=== PATIENT | female | born 1995 | race Caucasian/White ===

== ENCOUNTER 2016-11-05 22:19 | Emergency (ER) | payer SELFPAY ==
[2016-11-05 22:26] VITALS: O2SAT 100
--- NOTE | 2016-11-05 22:31 | C.PDOC ---
History Of Present Illness Patient presents to the ER with a complaint of diffuse abdominal pain since yesterday. Patient reports her LMP was a few months ago but reports she is very irregular and it is not uncommon for her. Denies fever, chills, nausea, or vomiting. Time Seen by Provider: 11/05/16 22:30 Chief Complaint (Nursing): Abdominal Pain History Per: Patient History/Exam Limitations: no limitations Onset/Duration Of Symptoms: Days Current Symptoms Are (Timing): Still Present Severity: Moderate Pain Scale Rating Of: 4 Location Of Pain/Discomfort: Diffuse Radiation Of Pain To:: None Quality Of Discomfort: Unable To Describe Associated Symptoms: denies: Fever, Chills, Nausea, Vomiting Exacerbating Factors: None Alleviating Factors: None Recent travel outside of the [place]: No Abnormal Vaginal Bleeding: No Past Medical History Reviewed: Historical Data, Nursing Documentation, Vital Signs Vital Signs: Last Vital Signs Temp 98.4 F 11/05/16 22:22 Pulse 77 11/05/16 22:22 Resp 18 11/05/16 22:22 BP 142/86 11/05/16 22:22 Pulse Ox 100 11/05/16 23:50 - Medical History PMH: No Chronic Diseases Surgical History: No Surg Hx Family History: States: No Known Family Hx - Social History Hx Tobacco Use: No Hx Alcohol Use: No Hx Substance Use: No - Immunization History Hx Tetanus Toxoid Vaccination: No Hx Influenza Vaccination: No Hx Pneumococcal Vaccination: No Review Of Systems Constitutional: Negative for: Fever, Chills Gastrointestinal: Positive for: Abdominal Pain. Negative for: Nausea, Vomiting Physical Exam - Physical Exam Appears: Non-toxic Skin: Warm, Dry Oral Mucosa: Moist Chest: Symmetrical, No Tenderness Cardiovascular: Rhythm Regular, No Murmur Respiratory: No Rales, No Rhonchi, No Wheezing Gastrointestinal/Abdominal: Soft, Tenderness (Mid epigastric ), No Guarding, No Rebound Neurological/Psych: Oriented x3 ED Course And Treatment - Laboratory Results Result Diagrams: 11/05/16 23:10 11/05/16 23:10 O2 Sat by Pulse Oximetry: 100 (Room air) Pulse Ox Interpretation: Normal Progress Note: CT abd/pel ordered. Pepcid and IV fluids administered. Reevaluation Time: 02:55 Reassessment Condition: Improved Disposition Counseled Patient/Family Regarding: Studies Performed, Diagnosis, Need For Followup, Rx Given - Disposition Referrals: [facility] [Outside] [facility] [Outside] Disposition: HOME/ ROUTINE Disposition Time: 22:31 Condition: FAIR Prescriptions: Dicyclomine [Dicyclomine HCl] 10 mg PO QID #16 cap Polyethylene Glycol 3350 [Miralax] 17 gm PO DAILY #270 ml Instructions: Abdominal Pain (ED), Gas and Bloating (ED), Constipation (DC) Forms: [employer] (Yi), [employer] (Hungarian) - Clinical Impression Clinical Impression: Constipation, Abdominal pain - Scribe Statement The provider has reviewed the documentation as recorded by the Scribe Morris Dave All medical record entries made by the Lauraibmima were at my direction and personally dictated by me. I have reviewed the chart and agree that the record accurately reflects my personal performance of the history, physical exam, medical decision making, and the department course for this patient. I have also personally directed, reviewed, and agree with the discharge instructions and disposition.
[2016-11-05] MEDS ORDERED: Sodium Chloride 0.9% 1,000 ML IV ONE (22:44)
[2016-11-05 23:09] LABS: RBC URINE < 1 /hpf (0-3); URINE BACTERIA RARE (<OCC); URINE BILIRUBIN NEGATIVE (NEGATIVE); URINE BLOOD NEGATIVE (NEGATIVE); URINE COLOR Straw (YELLOW); URINE GLUCOSE (UA) NORMAL (Normal); URINE KETONE NEGATIVE (NEGATIVE); URINE LEUKOCYTE ESTERASE TRACE Leu/uL (Negative); URINE PROTEIN NEGATIVE (NEGATIVE); URINE UROBILINOGEN NORMAL mg/dL (0.2-1.0); WBC URINE 5 /hpf (0-5)
[2016-11-05 23:12] LABS: BASO % 0.5 % (0.0-2.0); EOS # 0.2 K/uL (0.0-0.7); EOS % 1.6 % (0.0-4.0); LYMPH # 3.3 K/uL (1.0-4.3); MEAN CELL VOLUME 82.1 fL (81.0-99.0); MEAN CORPUSCULAR HGB CONC 32.8 g/dL (33.0-37.0); MEAN PLATELET VOLUME 8.7 fL (7.2-11.7); MONO # 0.8 K/uL (0.0-0.8); MONO % 7.3 % (0.0-10.0); RED CELL DISTRIBUTION WIDTH 13.7 % (11.5-14.5); WHITE BLOOD COUNT 10.6 K/uL (4.8-10.8)
[2016-11-05 23:22] LABS: GFR AFRICAN-AMERICAN > 60
[2016-11-05 23:23] LABS: ALB/GLOB RATIO 1.1 (1.0-2.1); ALKALINE PHOSPHATASE 79 U/L (38-126); ALT/SGPT 38 U/L (9-52); AST/SGOT 26 U/L (14-36); BILIRUBIN,TOTAL 0.6 mg/dL (0.2-1.3); BLOOD UREA NITROGEN 7 mg/dL (7-17); CARBON DIOXIDE 28 mmol/L (22-30); GLUCOSE,RANDOM 91 mg/dL (65-105); TOTAL PROTEIN 7.6 g/dL (6.3-8.3)
[2016-11-05 23:27] LABS: CHLORIDE 98 mmol/L (98-107); POTASSIUM 3.6 mmol/L (3.6-5.2); SODIUM 140 mmol/L (132-148)
[2016-11-06] MEDS ORDERED: Iodixanol 320 MG/ML 100 ML BOTTLE IV ONE (00:49)
[2016-11-06 03:10] VITALS: BP 111/70; PULSE 58; RESP 16; TEMP 98.6
--- NOTE | 2016-11-06 09:05 | CT ---
PROCEDURE: CT Abdomen and Pelvis with intravenous contrast HISTORY: Abdominal pain and cramping. COMPARISON: None. TECHNIQUE: Multiple contiguous axial images were performed through the abdomen and pelvis with the use intravenous contrast. Subsequently, sagittal coronal reformatted images were obtained. Radiation dose: Total exam DLP = 1136 mGy-cm. This CT exam was performed using one or more of the following dose reduction techniques: Automated exposure control, adjustment of the mA and/or kV according to patient size, and/or use of iterative reconstruction technique. FINDINGS: LOWER THORAX: Unremarkable. LIVER: Unremarkable. No gross lesion or ductal dilatation. GALLBLADDER AND BILE DUCTS: Unremarkable. PANCREAS: Unremarkable. No gross lesion or ductal dilatation. SPLEEN: Unremarkable. ADRENALS: Unremarkable. No mass. KIDNEYS AND URETERS: Punctate nonobstructing right renal calculus. VASCULATURE: Unremarkable. No aortic aneurysm. BOWEL: Unremarkable. No obstruction. No gross mural thickening. APPENDIX: Unremarkable. Normal appendix. PERITONEUM: Unremarkable. No free fluid. No free air. LYMPH NODES: Unremarkable. No enlarged lymph nodes. BLADDER: Unremarkable. REPRODUCTIVE: Heterogeneous uterus, endometrium, and bilateral adnexa. BONES: No acute fracture. OTHER FINDINGS: None. IMPRESSION: Punctate nonobstructing 3 millimeter right renal calculus. These findings were preliminarily reported at 2:50 a.m. on 11/06/[address] Juan Martins from [employer].
== END 2016-11-06 03:13 | disposition home or self-care (01) ==
LOC: C.ER 22:19
DX: K59.00 Constipation, unspecified (principal); R10.9 Unspecified abdominal pain
CPT/HCPCS: 74177; 80053; 81001; 83690; 84703; 85025; 96361; 96374; 96375; 99284; J1885; J7040; Q9967

== ENCOUNTER 2017-03-10 16:13 | Emergency (ER) | payer SELFPAY ==
[2017-03-10 17:07] VITALS: O2SAT 100
--- NOTE | 2017-03-10 17:21 | C.PDOC ---
History Of Present Illness Kathryn eHnry is a 21 year old female presents complaining of left-sided suprapubic pain occurring on and off for 1 week. Also complains of lower back pain for the same period of time. Took Advil 3 hrs ago with minimal improvement. Denies any associated hematuria, dysuria, nausea, vomiting, diarrhea, vaginal d/c or fever. PMD: None provided Time Seen by Provider: 03/10/17 17:08 Chief Complaint (Nursing): Back Pain History Per: Patient History/Exam Limitations: language barrier (translated from israeli by family members) Onset/Duration Of Symptoms: Days (x 1 week) Current Symptoms Are (Timing): Still Present Past Medical History Reviewed: Historical Data, Nursing Documentation, Vital Signs Vital Signs: Last Vital Signs Temp 98.5 F 03/10/17 20:12 Pulse 76 03/10/17 20:12 Resp 18 03/10/17 20:12 BP 130/78 03/10/17 20:12 Pulse Ox 100 03/10/17 20:53 - Medical History PMH: No Chronic Diseases Surgical History: No Surg Hx Family History: States: No Known Family Hx - Social History Hx Tobacco Use: No Hx Alcohol Use: No Hx Substance Use: No - Immunization History Hx Tetanus Toxoid Vaccination: No Hx Influenza Vaccination: No Hx Pneumococcal Vaccination: No Review Of Systems Except As Marked, All Systems Reviewed And Found Negative. Constitutional: Negative for: Fever Gastrointestinal: Positive for: Abdominal Pain (suprapubic, left-sided). Negative for: Nausea, Vomiting, Diarrhea Genitourinary: Negative for: Dysuria, Hematuria Musculoskeletal: Positive for: Back Pain Physical Exam - Physical Exam Appears: Non-toxic, No Acute Distress Skin: Normal Color, Warm, Dry Head: Atraumatic, Normacephalic Eye(s): bilateral: Normal Inspection, PERRL, EOMI Nose: Normal Neck: Normal, Normal ROM Gastrointestinal/Abdominal: Soft, Tenderness (Left lower suprapubic tenderness) Back: Other (mid sacral tenderness to palpation) Extremity: Normal ROM, No Deformity Neurological/Psych: Oriented x3, Normal Speech, Normal Motor, Normal Sensation ED Course And Treatment - Laboratory Results Result Diagrams: 03/10/17 19:25 03/10/17 19:25 Lab Interpretation: Abnormal (leukocytosis) O2 Sat by Pulse Oximetry: 100 (RA) Pulse Ox Interpretation: Normal - CT Scan/US Pelvic US Other Rad Studies (CT/US): Read By Radiologist, Radiology Report Reviewed CT/US Interpretation: FINDINGS: Uterus/cervix: Uterus measures 7.1 x 4.1 x 5.6 CM. Endometrial stripe. measures 7 mm. No myometrial mass. Right ovary: Right ovary measures 2.9 x 1.3 x 2.8 CM. Normal blood flow. Left ovary: Left ovary measures 3.6 x 2.2 x 2.5 CM. Normal blood flow. Free fluid: No free fluid. Bladder: Unremarkable as visualized. Wall is normal thickness for degree of. distention. . IMPRESSION: Normal pelvic ultrasound. Reassessment Condition: Improved (on re-evaluation pt states abdominal pain completely resolved) Medical Decision Making Medical Decision Making: Time: 17:20 Initial Impression: 21 year old female with suprapubic pain Initial Plan: * Tylenol 975 mg * Urinalysis * HCG Qualitative Urine positive for bacteria and WBC, and protein. Urine culture was sent. Pending Pelvic/Transvaginal Ultrasound. at 19:02 pt c/o sob, blood tests including d dimer ordered. Disposition Counseled Patient/Family Regarding: Studies Performed, Diagnosis, Need For Followup, Rx Given - Disposition Referrals: [facility] [Outside] [facility] [Outside] Disposition: HOME/ ROUTINE Disposition Time: 20:34 Condition: GOOD Additional Instructions: FOLLOW UP WITH PMD/CLINIC ON SUNDAY FOR RE-EVALUATION. DRINK PLENTY OF WATER AND CRANBERRY JUICE. IF ABDOMINAL PAIN, VOMITING, FEVER OR ANY NEW CONCERNING SYMPTOMS DEVELOP RETURN TO ED. Prescriptions: Ciprofloxacin [Cipro] 1 tab PO BID #9 tab Instructions: Urinary Tract Infection in Women (ED), Leukocytosis (ED) Forms: [employer] (Lithuanian) - Clinical Impression Clinical Impression: Urinary tract infection, Leukocytosis - PA / PRODUCT SAFETY ASSOCIATE / Resident Statement MD/DO has reviewed & agrees with the documentation as recorded. - Scribe Statement The provider has reviewed the documentation as recorded by the Lauraibmima Shah All medical record entries made by the Lauraibmima were at my direction and personally dictated by me. I have reviewed the chart and agree that the record accurately reflects my personal performance of the history, physical exam, medical decision making, and the department course for this patient. I have also personally directed, reviewed, and agree with the discharge instructions and disposition.
[2017-03-10 17:55] LABS: RBC URINE 2 /hpf (0-3); URINE BACTERIA RARE (<OCC); URINE BILIRUBIN NEGATIVE (NEGATIVE); URINE BLOOD NEGATIVE (NEGATIVE); URINE COLOR Yellow (YELLOW); URINE GLUCOSE (UA) NORMAL (Normal); URINE KETONE NEGATIVE (NEGATIVE); URINE LEUKOCYTE ESTERASE NEG Leu/uL (Negative); URINE PROTEIN 1+ mg/dL (NEGATIVE); URINE UROBILINOGEN NORMAL mg/dL (0.2-1.0); WBC URINE 15 /hpf (0-5)
[2017-03-10 19:28] LABS: BASO # 0.1 K/uL (0.0-0.2); BASO % 0.8 % (0.0-2.0); EOS # 0.1 K/uL (0.0-0.7); EOS % 0.6 % (0.0-4.0); LYMPH # 2.9 K/uL (1.0-4.3); LYMPH % 22.3 % (20.0-40.0); MEAN CELL VOLUME 81.9 fL (81.0-99.0); MEAN CORPUSCULAR HEMOGLOBIN 26.5 pg (27.0-31.0); MEAN CORPUSCULAR HGB CONC 32.4 g/dL (33.0-37.0); MEAN PLATELET VOLUME 9.1 fL (7.2-11.7); MONO # 0.5 K/uL (0.0-0.8); MONO % 4.1 % (0.0-10.0); RED CELL DISTRIBUTION WIDTH 13.5 % (11.5-14.5); WHITE BLOOD COUNT 13.1 K/uL (4.8-10.8)
[2017-03-10 19:41] LABS: ALB/GLOB RATIO 1.2 (1.0-2.1); ALKALINE PHOSPHATASE 69 U/L (38-126); ALT/SGPT 46 U/L (9-52); AST/SGOT 26 U/L (14-36); BILIRUBIN,TOTAL 0.5 mg/dL (0.2-1.3); BLOOD UREA NITROGEN 6 mg/dL (7-17); CALCIUM 8.5 mg/dl (8.6-10.4); CARBON DIOXIDE 28 mmol/L (22-30); CHLORIDE 102 mmol/L (98-107); GFR AFRICAN-AMERICAN > 60; GLUCOSE,RANDOM 92 mg/dL (65-105); POTASSIUM 3.6 mmol/L (3.6-5.2); SODIUM 139 mmol/L (132-148); TOTAL PROTEIN 7.3 g/dL (6.3-8.3)
[2017-03-10 20:13] VITALS: BP 130/78; PULSE 76; RESP 18; TEMP 98.5
--- NOTE | 2017-03-10 20:17 | US ---
EXAM: US Pelvis Complete, Transabdominal US Pelvis, Transvaginal CLINICAL HISTORY: 21 years old, female; Pain; Other: Pelvic pain; Gestational age or lmp: 02/21/2017; Additional info: Pain R/O ovarian cyst TECHNIQUE: Real-time transabdominal and transvaginal pelvic ultrasound (complete) with image documentation. Transvaginal imaging was used for better evaluation of the endometrium and adnexa. COMPARISON: No relevant prior studies available. FINDINGS: Uterus/cervix: Uterus measures 7.1 x 4.1 x 5.6 CM. Endometrial stripe measures 7 mm. No myometrial mass. Right ovary: Right ovary measures 2.9 x 1.3 x 2.8 CM. Normal blood flow. Left ovary: Left ovary measures 3.6 x 2.2 x 2.5 CM. Normal blood flow. Free fluid: No free fluid. Bladder: Unremarkable as visualized. Wall is normal thickness for degree of distention. IMPRESSION: Normal pelvic ultrasound.
== END 2017-03-10 20:36 | disposition home or self-care (01) ==
LOC: C.ER 16:13
DX: N39.0 Urinary tract infection, site not specified (principal); D72.829 Elevated white blood cell count, unspecified

== ENCOUNTER 2017-06-08 17:10 | Emergency (ER) | payer OTHER ==
[2017-06-08 17:31] VITALS: BMI 30.1
[2017-06-08] MEDS ORDERED: Sodium Chloride 0.9% 1,000 ML IV STA (18:14)
--- NOTE | 2017-06-08 18:30 | C.PDOC ---
History Of Present Illness <Risa Sue - Last Filed: 06/08/17 18:58> <Brynn Robles - Last Filed: 06/08/17 21:42> 22 y/o female presents to ED with complaints of abdominal pain for 3 days secondary to menses worse yesterday. Patient reports taking x2 600mg ibuprofen yesterday for pain and x12 600mg ibuprofen today. Patient admits to nausea and vomiting, denies fever, chills, back pain, dysuria or any other complaints at this time. (Risa Sue) History Per: Patient History/Exam Limitations: no limitations Onset/Duration Of Symptoms: Days Current Symptoms Are (Timing): Still Present Location Of Pain/Discomfort: Epigastric <Risa Sue - Last Filed: 06/08/17 18:58> <Brynn Robles - Last Filed: 06/08/17 21:42> Time Seen by Provider: 06/08/17 17:37 Chief Complaint (Nursing): Abdominal Pain Past Medical History Reviewed: Historical Data, Nursing Documentation, Vital Signs - Medical History PMH: No Chronic Diseases Surgical History: No Surg Hx Family History: States: No Known Family Hx - Social History Hx Tobacco Use: No Hx Alcohol Use: No Hx Substance Use: No - Immunization History Hx Tetanus Toxoid Vaccination: No Hx Influenza Vaccination: No Hx Pneumococcal Vaccination: No <Risa Sue - Last Filed: 06/08/17 18:58> Vital Signs: Last Vital Signs Temp 98.1 F 06/08/17 17:31 Pulse 72 06/08/17 20:45 Resp 18 06/08/17 20:45 BP 126/83 06/08/17 20:45 Pulse Ox 99 06/08/17 20:45 Review Of Systems Constitutional: Negative for: Fever, Chills Gastrointestinal: Positive for: Nausea, Vomiting, Abdominal Pain. Negative for : Diarrhea Genitourinary: Negative for: Dysuria Musculoskeletal: Negative for: Back Pain Skin: Negative for: Rash <Risa Sue - Last Filed: 06/08/17 18:58> Physical Exam - Physical Exam Appears: Non-toxic, No Acute Distress Skin: Warm, Dry, No Rash Head: Atraumatic, Normacephalic Eye(s): bilateral: Normal Inspection Oral Mucosa: Moist Neck: Normal ROM, Supple Chest: Symmetrical Cardiovascular: Rhythm Regular Respiratory: Normal Breath Sounds, No Rales, No Rhonchi, No Wheezing Gastrointestinal/Abdominal: Soft, Tenderness (Epigastric and mild suprapubic), No Guarding, No Rebound Back: No CVA Tenderness Extremity: Normal ROM, Capillary Refill (<2 seconds) Neurological/Psych: Oriented x3, Normal Speech <Risa Sue - Last Filed: 06/08/17 18:58> ED Course And Treatment O2 Sat by Pulse Oximetry: 100 (RA) Pulse Ox Interpretation: Normal Progress Note: Blood work, UA ordered. Zofran, Protonix and Morphine administered. Patient is pending US and labs, will be turned over to Dr. Robles @1900 <Risa Sue - Last Filed: 06/08/17 18:58> - Laboratory Results Result Diagrams: 06/08/17 19:02 06/08/17 19:02 <Brynn Robles - Last Filed: 06/08/17 21:42> Disposition - Disposition Disposition Time: 18:59 <Risa Sue - Last Filed: 06/08/17 18:58> <Brynn Robles - Last Filed: 06/08/17 21:42> - Disposition Condition: FAIR Forms: [employer] (Singaporean) - Clinical Impression Clinical Impression: Abdominal pain - PA / [employer] UPPERS OR LININGS / Resident Statement MD/DO has reviewed & agrees with the documentation as recorded. - Scribe Statement The provider has reviewed the documentation as recorded by the Scribe <Risa Sue - Last Filed: 06/08/17 18:58> <Brynn Robles - Last Filed: 06/08/17 21:42> - Scribe Statement Meghan Griggs All medical record entries made by the Scribe were at my direction and personally dictated by me. I have reviewed the chart and agree that the record accurately reflects my personal performance of the history, physical exam, medical decision making, and the department course for this patient. I have also personally directed, reviewed, and agree with the discharge instructions and disposition. (Risa Sue) Physician Patient Turnover Patient Signed Over To: Brynn Robles Handoff Comments: Pending US and Labs <Risa Sue - Last Filed: 06/08/17 18:58> Addendum <Risa Sue - Last Filed: 06/08/17 18:58> <Brynn Robles - Last Filed: 06/08/17 21:42> Addendum: 06/08/17 21:40 Patient resting comfortably, in no distress/pain. She states she has no current abdominal pain. Blood work WNL, transvaginal US unremarkable. She was instructed to never take more than Motrin 600mg Q6 WITH FOOD. Rx for pepcid given. Patient instructed to follow up with PMD/clinic in 1-2 days, and she understands she should return to ED if her symptoms worsen. (Brynn Robles)
[2017-06-08 18:47] LABS: HCG,QUALITATIVE URINE NEGATIVE (NEGATIVE)
[2017-06-08 18:50] LABS: SQUAMOUS EPITHIAL < 1 /hpf (0-5); URINE BACTERIA RARE (<OCC); URINE BILIRUBIN NEGATIVE (NEGATIVE); URINE BLOOD 3+ (NEGATIVE); URINE CLARITY Clear (Clear); URINE COLOR Colorless (YELLOW); URINE GLUCOSE (UA) NORMAL (Normal); URINE LEUKOCYTE ESTERASE NEG Leu/uL (Negative); URINE PROTEIN NEGATIVE (NEGATIVE); URINE UROBILINOGEN NORMAL mg/dL (0.2-1.0)
[2017-06-08] MEDS ORDERED: Sodium Chloride 0.9% 1,000 ML ONE (18:56)
[2017-06-08 19:05] LABS: BASO # 0.1 K/uL (0.0-0.2); BASO % 0.6 % (0.0-2.0); EOS # 0.1 K/uL (0.0-0.7); EOS % 0.4 % (0.0-4.0); HEMOGLOBIN 14.8 g/dL (11.0-16.0); LYMPH # 2.7 K/uL (1.0-4.3); LYMPH % 21.5 % (20.0-40.0); MEAN CELL VOLUME 80.2 fL (81.0-99.0); MEAN CORPUSCULAR HEMOGLOBIN 26.5 pg (27.0-31.0); MEAN CORPUSCULAR HGB CONC 33.1 g/dL (33.0-37.0); MEAN PLATELET VOLUME 9.3 fL (7.2-11.7); MONO # 0.5 K/uL (0.0-0.8); MONO % 4.1 % (0.0-10.0); NEUT # 9.4 K/uL (1.8-7.0); NEUT % 73.4 % (50.0-75.0); NRBC % 0.2 % (0.0-2.0); RBC 5.57 Mil/uL (3.80-5.20); RED CELL DISTRIBUTION WIDTH 13.5 % (11.5-14.5); WHITE BLOOD COUNT 12.7 K/uL (4.8-10.8)
[2017-06-08 19:17] LABS: ALBUMIN 4.2 g/dL (3.5-5.0); ALT/SGPT 20 U/L (9-52); AST/SGOT 20 U/L (14-36); BLOOD UREA NITROGEN 6 mg/dL (7-17); CALCIUM 9.8 mg/dl (8.6-10.4); GFR AFRICAN-AMERICAN > 60; GFR NON-AFRICAN AMERICAN > 60; LIPASE 222 U/L (23-300)
--- NOTE | 2017-06-08 21:00 | US ---
EXAM: US Pelvis Complete, Transabdominal CLINICAL HISTORY: 22 years old, female; Pain; Pelvic pain; Additional info: Epigastric abd pain TECHNIQUE: Real-time transabdominal pelvic ultrasound (complete) with image documentation. COMPARISON: No relevant prior studies available. FINDINGS: Uterus/cervix: Uterus measures 7.3 x 3.6 x 5.0 cm in size. No myometrial mass. Endometrium: 0.7 cm in thickness. Right ovary: 4.2 x 2.0 x 3.0 cm in size. No mass. Normal flow. Left ovary: 3.7 x 1.6 x 3.7 cm in size. No mass. Normal flow. Free fluid: No significant free fluid. Bladder: Unremarkable as visualized. IMPRESSION: 1.No acute findings. EXAM: US Pelvis, Transvaginal CLINICAL HISTORY: 22 years old, female; Pain; Pelvic pain; Additional info: Epigastric abd pain TECHNIQUE: Real-time transvaginal pelvic ultrasound (complete) with image documentation. Transvaginal imaging was used for better evaluation of the endometrium and adnexa. COMPARISON: No relevant prior studies available. FINDINGS: Uterus/cervix: Uterus measures 7.3 x 3.6 x 5.0 cm in size. No myometrial mass. Endometrium: 0.7 cm in thickness. Right ovary: 4.2 x 2.0 x 3.0 cm in size. No mass. Normal flow. Left ovary: 3.7 x 1.6 x 3.7 cm in size. No mass. Normal flow. Free fluid: No significant free fluid. Bladder: Empty bladder which cannot be evaluated with this probe. IMPRESSION: 1.No acute findings.
[2017-06-08 21:59] VITALS: BP 133/83; PULSE 76; RESP 20; TEMP 99; O2SAT 100
== END 2017-06-08 21:59 | disposition home or self-care (01) ==
LOC: C.ER 17:10
DX: R10.9 Unspecified abdominal pain (principal)
CPT/HCPCS: 76830; 76856; 80053; 81001; 83690; 84703; 85025; 96361; 96374; 96375; 99285; C9113; J2270; J2405; J7040

== ENCOUNTER 2017-06-18 10:50 | Emergency (ER) | payer OTHER ==
[2017-06-18 10:51] VITALS: BMI 30.1
[2017-06-18 10:58] VITALS: RESP 18
[2017-06-18 11:08] VITALS: TEMP 98.2
[2017-06-18 12:19] LABS: HCG,QUALITATIVE URINE NEGATIVE (NEGATIVE)
[2017-06-18 12:25] LABS: SQUAMOUS EPITHIAL 14 /hpf (0-5); URINE BACTERIA FEW (<OCC); URINE BILIRUBIN NEGATIVE (NEGATIVE); URINE BLOOD 3+ (NEGATIVE); URINE CLARITY Hazy (Clear); URINE COLOR Red (YELLOW); URINE GLUCOSE (UA) NORMAL (Normal); URINE LEUKOCYTE ESTERASE 1+ Leu/uL (Negative); URINE PROTEIN 2+ mg/dL (NEGATIVE); URINE UROBILINOGEN NORMAL mg/dL (0.2-1.0)
--- NOTE | 2017-06-18 12:32 | C.PDOC ---
History Of Present Illness 22-year-old female presents to the emergency department with complaints of abdominal pain for the past ten days. Patient was seen in ED last week for same complaint and reports no improvement. She has not followed with OBGYN for her symptoms. She is taking x2 600mg ibuprofen at home for pain with minimal relief. Patient admits to nausea and and non-bloody/non-bilious vomiting, denies fever, chills, back pain, dysuria or any other complaints at this time. Time Seen by Provider: 06/18/17 12:02 Chief Complaint (Nursing): Female Genitourinary History Per: Patient History/Exam Limitations: no limitations Past Medical History Reviewed: Historical Data, Nursing Documentation, Vital Signs Vital Signs: Last Vital Signs Temp 98.2 F 06/18/17 10:55 Pulse 81 06/18/17 10:55 Resp 18 06/18/17 10:55 BP 138/95 H 06/18/17 10:55 Pulse Ox 99 06/18/17 13:27 Family History: States: No Known Family Hx - Social History Hx Tobacco Use: No Hx Alcohol Use: No Hx Substance Use: No - Immunization History Hx Tetanus Toxoid Vaccination: No Hx Influenza Vaccination: No Hx Pneumococcal Vaccination: No Review Of Systems Constitutional: Negative for: Fever Respiratory: Negative for: Shortness of Breath Gastrointestinal: Positive for: Nausea, Vomiting, Abdominal Pain Genitourinary: Positive for: Vaginal Bleeding, Pelvic Pain. Negative for: Dysuria, Vaginal Discharge Neurological: Negative for: Weakness, Numbness, Headache, Dizziness Physical Exam - Physical Exam Appears: Well, Non-toxic, No Acute Distress Skin: Normal Color, Warm, Dry, No Rash Head: Normacephalic Eye(s): bilateral: PERRL Nose: Normal Oral Mucosa: Moist Lips: Normal Appearing Neck: Normal ROM Chest: Symmetrical Cardiovascular: Rhythm Regular, No Murmur Respiratory: Normal Breath Sounds, No Accessory Muscle Use Gastrointestinal/Abdominal: Soft, Tenderness (Suprapubic), No Guarding, No Rebound Extremity: Normal ROM, No Deformity, No Swelling Neurological/Psych: Oriented x3, Normal Speech ED Course And Treatment - Laboratory Results Result Diagrams: 06/18/17 13:05 06/18/17 13:05 Urine POC: Negative O2 Sat by Pulse Oximetry: 99 (RA) Pulse Ox Interpretation: Normal Progress - Data Reviewed Data Reviewed: Lab, Old records Disposition Counseled Patient/Family Regarding: Studies Performed, Diagnosis, Need For Followup, Rx Given - Disposition Referrals: [facility] [Outside] [facility] [Outside] Disposition: HOME/ ROUTINE Disposition Time: 13:26 Condition: GOOD Prescriptions: Naproxen [Naprosyn] 1 tab PO BID PRN #25 tab PRN Reason: Pain Nitrofurantoin Macrocrystals [Macrobid] 1 cap PO BID #14 cap Phenazopyridine HCl [Pyridium] 200 mg PO BID #6 tablet Instructions: Urinary Tract Infections in Adults, Menstrual Cramps Forms: [employer] (Pashto) Print Language: DANISH - Clinical Impression Clinical Impression: Urinary tract infection, Pelvic pain - Scribe Statement The provider has reviewed the documentation as recorded by the Scribe (Karen Calderón) All medical record entries made by the Scribe were at my direction and personally dictated by me. I have reviewed the chart and agree that the record accurately reflects my personal performance of the history, physical exam, medical decision making, and the department course for this patient. I have also personally directed, reviewed, and agree with the discharge instructions and disposition.
[2017-06-18 13:09] LABS: BASO # 0.1 K/uL (0.0-0.2); BASO % 0.9 % (0.0-2.0); EOS % 0.3 % (0.0-4.0); LYMPH # 2.3 K/uL (1.0-4.3); LYMPH % 22.3 % (20.0-40.0); MEAN CELL VOLUME 80.6 fL (81.0-99.0); MEAN CORPUSCULAR HEMOGLOBIN 26.5 pg (27.0-31.0); MEAN CORPUSCULAR HGB CONC 32.8 g/dL (33.0-37.0); MEAN PLATELET VOLUME 8.5 fL (7.2-11.7); MONO # 0.4 K/uL (0.0-0.8); MONO % 3.8 % (0.0-10.0); NEUT # 7.6 K/uL (1.8-7.0); NEUT % 72.7 % (50.0-75.0); NRBC % 0.1 % (0.0-2.0); RBC 4.72 Mil/uL (3.80-5.20); RED CELL DISTRIBUTION WIDTH 13.7 % (11.5-14.5); WHITE BLOOD COUNT 10.4 K/uL (4.8-10.8)
[2017-06-18 13:12] LABS: HEMOGLOBIN 12.5 g/dL (11.0-16.0)
[2017-06-18 13:23] LABS: BLOOD UREA NITROGEN 8 mg/dL (7-17); CALCIUM 9.2 mg/dl (8.6-10.4); GFR AFRICAN-AMERICAN > 60; GFR NON-AFRICAN AMERICAN > 60
[2017-06-18 13:40] VITALS: BP 136/77; PULSE 77
[2017-06-18 13:41] VITALS: O2SAT 99
== END 2017-06-18 13:47 | disposition home or self-care (01) ==
LOC: C.ER 10:50
DX: N39.0 Urinary tract infection, site not specified (principal)
CPT/HCPCS: 80048; 81001; 84703; 85025; 96374; 99285; J1885

== ENCOUNTER 2017-12-04 18:26 | Emergency (ER) | payer OTHER ==
[2017-12-04 18:26] VITALS: BMI 30.1
[2017-12-04 18:33] VITALS: O2SAT 98
[2017-12-04 18:58] LABS: HCG,QUALITATIVE URINE NEGATIVE (NEGATIVE); SQUAMOUS EPITHIAL 3 /hpf (0-5); URINE BACTERIA FEW (<OCC); URINE BILIRUBIN NEGATIVE (NEGATIVE); URINE BLOOD 1+ (NEGATIVE); URINE CLARITY Clear (Clear); URINE COLOR Yellow (YELLOW); URINE GLUCOSE (UA) NORMAL (Normal); URINE PROTEIN NEGATIVE (NEGATIVE); URINE UROBILINOGEN NORMAL mg/dL (0.2-1.0)
[2017-12-04 19:01] LABS: URINE LEUKOCYTE ESTERASE 1+ Leu/uL (Negative)
[2017-12-04] MEDS ORDERED: Sodium Chloride 0.9% 1,000 ML IV ONE (19:09)
--- NOTE | 2017-12-04 19:19 | C.PDOC ---
History Of Present Illness 22 y/o female presents to the ED complaining of lower abdominal pain for 3 days. Pain is described as on and off. LMP was mid-October. Also complaining of light vaginal spotting. No discharge. Otherwise she denies any hematuria, diarrhea, dysuria, or fevers. Time Seen by Provider: 12/04/17 19:02 Chief Complaint (Nursing): Female Genitourinary History Per: Patient History/Exam Limitations: no limitations Onset/Duration Of Symptoms: Days (x3) Current Symptoms Are (Timing): Still Present Abnormal Vaginal Bleeding: Yes Last Menstral Period: middle of October Past Medical History Reviewed: Historical Data, Nursing Documentation, Vital Signs Vital Signs: Last Vital Signs Temp 98.7 F 12/04/17 18:31 Pulse 83 12/04/17 18:31 Resp 20 12/04/17 18:31 BP 136/80 12/04/17 18:31 Pulse Ox 98 12/04/17 21:29 Surgical History: No Surg Hx Family History: States: No Known Family Hx - Social History Hx Tobacco Use: No Hx Alcohol Use: No Hx Substance Use: No - Immunization History Hx Tetanus Toxoid Vaccination: No Hx Influenza Vaccination: No Hx Pneumococcal Vaccination: No Review Of Systems Except As Marked, All Systems Reviewed And Found Negative. Constitutional: Negative for: Fever, Chills Gastrointestinal: Positive for: Abdominal Pain. Negative for: Vomiting, Diarrhea Genitourinary: Positive for: Vaginal Bleeding. Negative for: Dysuria, Frequency , Hematuria, Vaginal Discharge Physical Exam - Physical Exam Appears: Non-toxic, No Acute Distress Skin: Normal Color, Warm, Dry Head: Atraumatic, Normacephalic Eye(s): bilateral: Normal Inspection, PERRL, EOMI Oral Mucosa: Moist Neck: Normal ROM, Supple Chest: Symmetrical Cardiovascular: Rhythm Regular, No Murmur Respiratory: Normal Breath Sounds, No Rales, No Rhonchi, No Wheezing Gastrointestinal/Abdominal: Soft, Tenderness (Mild lower abdominal tenderness bilaterally), No Guarding, No Rebound Back: Normal Inspection, No CVA Tenderness Extremity: Bilateral: Atraumatic, Normal Color And Temperature, Normal ROM Neurological/Psych: Oriented x3, Normal Speech ED Course And Treatment - Laboratory Results Result Diagrams: 12/04/17 19:24 12/04/17 19:24 Urine POC: Negative O2 Sat by Pulse Oximetry: 98 (RA) Pulse Ox Interpretation: Normal - CT Scan/US Pelvic US Other Rad Studies (CT/US): Read By Radiologist, Radiology Report Reviewed CT/US Interpretation: Name: EKATERINA BOWLES Age: 22Years F Date: 12/04/2017. Requesting Physician: Júnior Sherwin : 1995. [employer] Procedure Ordered As Accession Number of Images. US PELVIS COMP NON-OB PELVIS/ TRANSVAG US [id number] 86. Provided Clinical History: lower abd pain/ tenderness. CONFIDENTIALITY STATEMENT. This report is intended only for the use of the referring physician, and only in accordance with law, If you received this in error, call [phone]. Page 1 of 1. EXAM: US Pelvis Complete, Transabdominal. US Pelvis, Transvaginal. CLINICAL HISTORY: 22 years old, female; Pain; Pelvic pain; Additional info: Lower abd pain/. tenderness. TECHNIQUE: Real-time transabdominal and transvaginal pelvic ultrasound (complete ) with image. documentation. Transvaginal imaging was used for better evaluation of the endometrium and. adnexa. COMPARISON: PELVIS/TRANSVAG US 2017 8:06 PM. FINDINGS: Uterus/cervix: Unremarkable. No myometrial mass. Endometrial stripe measures 7 mm in thickness. Trace free fluid in the cervix which is a benign finding. Right ovary: Unremarkable. No mass. Normal blood flow. Left ovary: Unremarkable. No mass. Normal blood flow. Free fluid: No free fluid. IMPRESSION: Normal pelvic ultrasound. Thank you for allowing us to participate in the care of your patient. Dictated and Authenticated by: Demarcus Quezada MD. 12/04/2017 9:26 PM [facility] [place] ([place] [facility] [place]) Medical Decision Making Medical Decision Making: Initial Plan: --Beta HCG quant --CMP --Lipase --CBC --Urinalysis --Urine preg --Urine culture --IV fluids --Toradol 30 mg IVP --Pelvic US Labs reviewed, and discussed with patient. Urine HCG negative. Ultrasound is normal. Copy of report provided. Disposition Counseled Patient/Family Regarding: Diagnosis - Disposition Referrals: [facility] [Outside] Disposition: HOME/ ROUTINE Disposition Time: 21:33 Condition: STABLE Prescriptions: Ciprofloxacin [Cipro] 1 tab PO BID #14 tab Ibuprofen [Motrin] 1 tab PO TID PRN #30 tab PRN Reason: Pain Instructions: Urinary Tract Infections in Adults Forms: [facility] (Occitan), Gen Discharge Inst English Print Language: KENYAN - POA Present On Arrival: None - Clinical Impression Clinical Impression: Urinary tract infection - Scribe Statement The provider has reviewed the documentation as recorded by the Francisco Shah Provider Attestation: All medical record entries made by the Francisco were at my direction and personally dictated by me. I have reviewed the chart and agree that the record accurately reflects my personal performance of the history, physical exam, medical decision making, and the department course for this patient. I have also personally directed, reviewed, and agree with the discharge instructions and disposition.
[2017-12-04 19:27] LABS: BASO # 0.1 K/uL (0.0-0.2); BASO % 0.6 % (0.0-2.0); EOS # 0.4 K/uL (0.0-0.7); EOS % 3.4 % (0.0-4.0); LYMPH # 3.8 K/uL (1.0-4.3); LYMPH % 34.6 % (20.0-40.0); MEAN CORPUSCULAR HEMOGLOBIN 27.1 pg (27.0-31.0); MEAN CORPUSCULAR HGB CONC 33.9 g/dL (33.0-37.0); MEAN PLATELET VOLUME 8.6 fL (7.2-11.7); MONO # 0.6 K/uL (0.0-0.8); MONO % 5.7 % (0.0-10.0); NEUT # 6.2 K/uL (1.8-7.0); NEUT % 55.7 % (50.0-75.0); NRBC % 0.1 % (0.0-2.0); RBC 4.79 Mil/uL (3.80-5.20); RED CELL DISTRIBUTION WIDTH 13.7 % (11.5-14.5); WHITE BLOOD COUNT 11.1 K/uL (4.8-10.8)
[2017-12-04 19:44] LABS: ALB/GLOB RATIO 1.2 (1.0-2.1); ALT/SGPT 31 U/L (9-52); AST/SGOT 22 U/L (14-36); BLOOD UREA NITROGEN 8 mg/dL (7-17); CALCIUM 8.7 mg/dl (8.6-10.4); GFR NON-AFRICAN AMERICAN > 60; LIPASE 277 U/L (23-300)
[2017-12-04 22:12] VITALS: BP 112/68; PULSE 72; RESP 18; TEMP 97.2
--- NOTE | 2017-12-05 10:10 | US ---
Date of service: 12/04/2017 HISTORY: lower abd pain/ tenderness COMPARISON: None available. TECHNIQUE: Transabdominal and transvaginal pelvic ultrasound was performed. FINDINGS: UTERUS: Measures 6.3 x 3.6 x 4.2 cm. Anteverted, normal in size and appearance. No fibroid or other mass lesion seen. ENDOMETRIUM: Measures 7 mm in diameter. Normal in appearance. CERVIX: Small amount of fluid in the endocervical canal. RIGHT OVARY: Measures 5.6 x 2.2 x 2.8 cm. No solid mass. Normal flow. LEFT OVARY: Measures 4.8 x 1.8 x 2.9 cm. No solid mass. Normal flow. FREE FLUID: No significant free fluid noted. OTHER FINDINGS: None. IMPRESSION: Unremarkable pelvic ultrasound. A preliminary report was provided by [employer].
== END 2017-12-04 22:12 | disposition home or self-care (01) ==
LOC: C.ER 18:26
DX: N39.0 Urinary tract infection, site not specified (principal)
CPT/HCPCS: 76830; 76856; 80053; 81001; 83690; 84702; 84703; 85025; 96361; 96374; 99285; J1885; J7030

== ENCOUNTER 2018-07-02 21:45 | Emergency (ER) | payer OTHER ==
[2018-07-02 21:45] VITALS: BMI 30.1
[2018-07-02 22:33] VITALS: RESP 16; O2SAT 98
[2018-07-02] MEDS ORDERED: Sodium Chloride 0.9% 1,000 ML IV ONE (22:51)
[2018-07-02] MEDS ORDERED: Sodium Chloride 0.9% 1,000 ML ONE (23:22)
[2018-07-02 23:23] LABS: BASO # 0.1 K/uL (0.0-0.2); EOS # 0.3 K/uL (0.0-0.7); EOS % 2.2 % (0.0-4.0); HEMOGLOBIN 12.7 g/dL (11.0-16.0); LYMPH # 4.4 K/uL (1.0-4.3); LYMPH % 35.1 % (20.0-40.0); MEAN CELL VOLUME 84.7 fL (81.0-99.0); MEAN PLATELET VOLUME 9.1 fL (7.2-11.7); MONO # 0.8 K/uL (0.0-0.8); MONO % 6.4 % (0.0-10.0); NEUT # 6.9 K/uL (1.8-7.0); NEUT % 55.3 % (50.0-75.0); NRBC % 0.2 % (0.0-2.0); RBC 4.56 Mil/uL (3.80-5.20); RED CELL DISTRIBUTION WIDTH 13.4 % (11.5-14.5); WHITE BLOOD COUNT 12.4 K/uL (4.8-10.8)
[2018-07-02 23:32] LABS: SQUAMOUS EPITHIAL 51 /hpf (0-5); URINE BILIRUBIN NEGATIVE (NEGATIVE); URINE BLOOD 1+ (NEGATIVE); URINE CLARITY Hazy (Clear); URINE COLOR Yellow (YELLOW); URINE GLUCOSE (UA) NORMAL (Normal); URINE LEUKOCYTE ESTERASE TRACE Leu/uL (Negative); URINE PROTEIN NEGATIVE (NEGATIVE); URINE UROBILINOGEN NORMAL mg/dL (0.2-1.0)
[2018-07-02 23:35] LABS: ALB/GLOB RATIO 1.2 (1.0-2.1); ALBUMIN 3.9 g/dL (3.5-5.0); ALT/SGPT 10 U/L (9-52); AST/SGOT 21 U/L (14-36); BLOOD UREA NITROGEN 10 mg/dL (7-17); CALCIUM 9.1 mg/dl (8.6-10.4); GFR NON-AFRICAN AMERICAN > 60; LIPASE 126 U/L (23-300)
[2018-07-02 23:37] LABS: HCG,QUALITATIVE URINE NEGATIVE (NEGATIVE)
--- NOTE | 2018-07-03 00:09 | C.PDOC ---
History Of Present Illness 23 year old female presents with 3 days of epigastric pain. Patient has multiple visits for abdominal discomfort in the past, usually diagnosed with constipation. Pain is resolved at this time. Reports no menstrual period since 01/2018. Hx of polycystic ovarian disease. No other complaints. Time Seen by Provider: 07/02/18 22:42 Chief Complaint (Nursing): Abdominal Pain History Per: Patient History/Exam Limitations: no limitations Onset/Duration Of Symptoms: Days (3) Current Symptoms Are (Timing): Still Present Location Of Pain/Discomfort: Epigastric Quality Of Discomfort: Unable To Describe Associated Symptoms: denies: Fever, Chills, Nausea, Vomiting, Diarrhea Exacerbating Factors: None Alleviating Factors: None Recent travel outside of the [place]: No Abnormal Vaginal Bleeding: No Past Medical History Reviewed: Historical Data, Nursing Documentation, Vital Signs Vital Signs: Last Vital Signs Temp 98.7 F 07/02/18 22:27 Pulse 81 07/02/18 22:27 Resp 16 07/02/18 22:27 BP 114/78 07/02/18 22:27 Pulse Ox 98 07/02/18 22:27 Family History: States: No Known Family Hx - Social History Hx Tobacco Use: No Hx Alcohol Use: No Hx Substance Use: No - Immunization History Hx Tetanus Toxoid Vaccination: No Hx Influenza Vaccination: No Hx Pneumococcal Vaccination: No Review Of Systems Constitutional: Negative for: Fever, Chills Cardiovascular: Negative for: Chest Pain, Palpitations Respiratory: Negative for: Cough, Shortness of Breath Gastrointestinal: Positive for: Abdominal Pain. Negative for: Nausea, Vomiting, Diarrhea Genitourinary: Negative for: Dysuria, Hematuria Neurological: Negative for: Weakness, Numbness Physical Exam - Physical Exam Appears: Non-toxic, Other (Large, obese, female, hirsute) Skin: Normal Color, Warm Head: Atraumatic, Normacephalic Eye(s): bilateral: Normal Inspection Oral Mucosa: Moist Neck: Normal, Supple Chest: Symmetrical, No Tenderness Cardiovascular: Rhythm Regular Respiratory: Normal Breath Sounds, No Rales, No Rhonchi, No Wheezing Gastrointestinal/Abdominal: Soft, No Guarding, No Rebound, Other (Obese, Tympanic epigastrium, negative murphys/mcburneys) Back: No CVA Tenderness Neurological/Psych: Oriented x3, Normal Speech ED Course And Treatment - Laboratory Results Result Diagrams: 07/02/18 23:17 07/02/18 23:17 Lab Results: Total Bilirubin 0.2 mg/dL (0.2-1.3) 07/02/18 23:17 AST 21 U/L (14-36) 07/02/18 23:17 ALT 10 U/L (9-52) 07/02/18 23:17 Alkaline Phosphatase 99 U/L (38-126) 07/02/18 23:17 Total Protein 7.1 g/dL (6.3-8.3) 07/02/18 23:17 Albumin 3.9 g/dL (3.5-5.0) 07/02/18 23:17 Globulin 3.2 gm/dL (2.2-3.9) 07/02/18 23:17 Albumin/Globulin Ratio 1.2 (1.0-2.1) 07/02/18 23:17 Lipase 126 U/L (23-300) 07/02/18 23:17 Urine Color Yellow (YELLOW) 07/02/18 23:17 Urine Clarity Hazy (Clear) 07/02/18 23:17 Urine pH 5.0 (5.0-8.0) 07/02/18 23:17 Ur Specific [place] 1.026 (1.003-1.030) 07/02/18 23:17 Urine Protein Negative mg/dL (NEGATIVE) 07/02/18 23:17 Urine Glucose (UA) Normal mg/dL (Normal) 07/02/18 23:17 Urine Ketones Negative mg/dL (NEGATIVE) 07/02/18 23:17 Urine Blood 1+ (NEGATIVE) H 07/02/18 23:17 Urine Nitrate Negative (NEGATIVE) 07/02/18 23:17 Urine Bilirubin Negative (NEGATIVE) 07/02/18 23:17 Urine Urobilinogen Normal mg/dL (0.2-1.0) 07/02/18 23:17 Ur Leukocyte Esterase Trace Annelise/uL (Negative) 07/02/18 23:17 Urine WBC (Auto) 4 /hpf (0-5) 07/02/18 23:17 Urine RBC (Auto) 4 /hpf (0-3) H 07/02/18 23:17 Ur Squamous Epith Cells 51 /hpf (0-5) H 07/02/18 23:17 Urine HCG, Qual Negative (NEGATIVE) 07/02/18 23:17 Urine HCG, Qual Negative (NEGATIVE) 07/02/18 23:17 Lab Interpretation: Normal (no L shift, UA neg.) Urine POC: Negative O2 Sat by Pulse Oximetry: 98 Pulse Ox Interpretation: Normal - Radiology CXR: Interpreted by Me CXR Interpretation: Yes: No Acute Disease - Other Rad abd x 2 X-Ray: Interpreted by Me (+FOS) Reevaluation Time: :16 Reassessment Condition: Improved (remains asymptomatic) Medical Decision Making Medical Decision Making: acute on chronic constipation many presentations for same poor insight to diet/exercise LMP 01/24 prob due to POCS preg neg. Disposition Doctor Will See Patient In The: Office Counseled Patient/Family Regarding: Studies Performed, Diagnosis - Disposition Disposition: HOME/ ROUTINE Disposition Time: :17 Condition: GOOD Forms: [facility] (French) - Clinical Impression Clinical Impression: Abdominal pain, colicky - Scribe Statement The provider has reviewed the documentation as recorded by the Scribmima Dave All medical record entries made by the Lauraibmima were at my direction and personally dictated by me. I have reviewed the chart and agree that the record accurately reflects my personal performance of the history, physical exam, medical decision making, and the department course for this patient. I have also personally directed, reviewed, and agree with the discharge instructions and disposition.
[2018-07-03] MEDS ORDERED: Magnesium Citrate Oral SOL (300 ml) PO ONE (01:17)
[2018-07-03 01:28] VITALS: BP 126/73; PULSE 79; TEMP 98.3
[2018-07-03] MEDS ORDERED: Magnesium Citrate Oral SOL (300 ml) ONE (01:32)
--- NOTE | 2018-07-03 11:19 | RAD ---
Date of service: 07/03/2018 PROCEDURE: Radiographs of the chest and abdomen (obstructive series) HISTORY: abd pain COMPARISON: CT abdomen and pelvis with IV contrast performed 11/06/16 TECHNIQUE: AP radiograph of the chest, with upright and supine radiographs of the abdomen. FINDINGS: Examination limited by habitus. CHEST: Heart size appears within normal limits. Bibasilar atelectasis. No focal consolidation, significant pleural effusion, or definite pneumothorax. Please note that chest x-ray has limited sensitivity for the detection of pulmonary masses. ABDOMEN AND PELVIS: Nonobstructive bowel gas pattern. Moderate constipation. No definite free air. No acute osseous abnormality is detected. IMPRESSION: Bibasilar atelectasis. Moderate constipation
== END 2018-07-03 01:50 | disposition home or self-care (01) ==
LOC: C.ER 21:45
DX: R10.84 Generalized abdominal pain (principal)
CPT/HCPCS: 74022; 80053; 81001; 83690; 84703; 85025; 96361; 96374; 99283; J1885; J7030